=== PATIENT | female | born 1975 | race Caucasian/White ===

== ENCOUNTER 2017-09-13 21:58 | Emergency (ER) | payer OTHER, MEDICAID, SELFPAY ==
[2017-09-13 22:06] VITALS: BP 105/56; PULSE 103; RESP 22; TEMP 36.7; O2SAT 99
--- NOTE | 2017-09-13 22:15 | PC.NURSE ---
pt with hx of liver failure and acities present to the ed with audible course cough from across the room. pt states having difficulty breathing but the duoneb in the ambulace helped.
--- NOTE | 2017-09-13 22:17 | PC.NURSE ---
pt able to talk in full sentences.
--- NOTE | 2017-09-13 22:23 | DI.RAD.S_ITS ---
PROCEDURE: XR CHEST 1V INDICATIONS: Dyspnea TECHNIQUE: One view of the chest was acquired. COMPARISON: None. FINDINGS: Surgical changes and devices: None. Lungs and pleura: Left basilar atelectasis. No pleural effusions or pneumothorax. Mediastinum: Mediastinal contours appear normal. Heart size is normal. Bones and chest wall: No suspicious bony lesions. Overlying soft tissues appear unremarkable. IMPRESSION: Left basilar atelectasis. Dictated by: Tyler Blevins M.D. on 09/14/2017 at 9:16 Approved by: Tyler Blevins M.D. on 09/14/2017 at 9:17
--- NOTE | 2017-09-13 22:28 | ED_ITS ---
HPI - URI/Sore Throat General Chief Complaint: Upper Respiratory Symptoms Stated Complaint: SOA Time Seen by Provider: 09/13/17 22:02 Source: patient Mode of arrival: EMS Limitations: no limitations History of Present Illness HPI Narrative: The patient arrived but would be EMS with onset of dyspnea that started over the last 3-4 hours. She has a hacking cough, but denies fever. The cough has been generally nonproductive. She states she is a former smoker. She was discharged from [facility] 2 days ago, she has ascites and peripheral edema. I obtained her records, she was treated for pneumonia there, as well as cirrhosis and ascites. She is a former heavy alcohol user. She apparently has an appointment with [facility] tomorrow to be evaluated for a liver transplant program. She was seen in clinic earlier today , the ascites and edema were reviewed. She was not having dyspnea at that time. She has felt warm, but has no recorded fever. She says the peripheral edema has been there only 2 days and is related to sitting at bedside for 5 hr prior to discharge. Related Data Previous Rx's Medication Instructions Recorded potassium chloride 20 meq PO DAILY #30 tab 09/14/17 Allergies Allergy/AdvReac Type Severity Reaction Status Date / Time amoxicillin Allergy Rash Verified 09/13/17 22:38 ampicillin Allergy Rash Verified 09/13/17 22:38 Review of Systems Constitutional Reports as per HPI, Denies anorexia, Denies body ache(s), Denies chills, Reports fatigue, Denies fever(s), Denies headache(s), Denies night sweats and Reports poor appetite Eyes Denies change in vision ENT Ears, Nose, Mouth, and Throat: Denies headache(s), Denies sinus pressure and Denies sore throat Cardiovascular Denies chest pain, Denies irregular heart rhythm, Reports leg edema and Reports dyspnea Respiratory Reports chest congestion, Reports cough and Reports dyspnea Gastrointestinal Gastrointestinal: Reports abdominal pain, Denies melena, Reports bloating, Denies constipation, Denies cramping and Denies vomiting Genitourinary Denies dysuria Musculoskeletal Denies back pain, Denies myalgias, Denies atrophy, Denies deformity, Reports limited range of motion and Denies numbness Integumentary/Breasts Denies pruritus, Denies erythema, Denies rash, Denies wounds and Reports jaundice Neurologic Denies headache(s) and Denies numbness Endocrine Reports fatigue [facility] Medical History Alcoholic cirrhosis of liver with ascites (Acute) Pneumonia (Acute) Exam Initial Vital Signs Initial Vital Signs: Vital Signs Temperature 98.0 F 09/13/17 22:06 Pulse Rate 103 H 09/13/17 22:06 Respiratory Rate 22 09/13/17 22:06 Blood Pressure 105/56 L 09/13/17 22:06 Pulse Oximetry 99 09/13/17 22:06 Const General: cooperative, frail appearing and ill appearing Orientation: alert and oriented x3 HENMT Head: normal to inspection, normocephalic and atraumatic Mouth: oral mucosae normal Eyes Sclera: scleral abnormality (Icterus) bilaterally Pupils: PERRL EOM: EOM intact bilaterally Direct ophthalmoscopy: anterior chamber abnormal Neck Neck: No JVD Thyroid: thyroid normal Resp Effort & Inspection: normal respiratory effort, able to speak in complete sentences, no respiratory distress and no use of accessory muscles Auscultation: clear to auscultation bilaterally, no rales, no rhonchi and wheezes expiratory wheezes (Diffusely throughout both lungs.) Cardio Rate: regular rate Rhythm: regular rhythm Heart Sounds: no click, no gallops, no murmurs and no rubs Pulses: normal peripheral pulses GI Palpation: hepatomegaly and No tender Percussion: dullness to percussion and fluid wave Auscultation: normal bowel sounds Back/Spine/Pelvis Back: No crepitance and No CVA tenderness Skin General: no rashes or lesions noted, No erythema, jaundice and No petechiae Neuro General: alert, oriented x3, gait normal and no focal motor deficits Speech: speech normal Extrem General: full ROM, no clubbing, cyanosis or edema and edema Course Orders Ordered: ED Orders 09/13/17 22:23 XR chest 1V Stat EKG-12 Lead Stat 09/13/17 22:37 Ammonia (NH3) Stat B Type Natriuretic Peptide Stat Complete Blood Count AUTO DIFF Stat Comprehensive Metabolic Panel Stat Lipase Stat Partial Thromboplastin Time Stat Prothrombin Time INR Stat Troponin & CK Cardiac Panel Stat Discontinued Medications Albuterol (Ventolin Hfa Prepack) 1 box MISC SEEINSTR ONE Stop: 09/14/17 04:07 Last Admin: 09/14/17 05:09 Dose: 1 box Albuterol/Ipratropium (Duoneb) 3 ml INH NOW ONE Stop: 09/13/17 22:24 Last Admin: 09/13/17 22:57 Dose: 3 ml Furosemide (Lasix) 40 mg IV NOW ONE Stop: 09/13/17 22:24 Last Admin: 09/13/17 22:39 Dose: 40 mg Potassium Chloride (Potassium Chloride) 40 meq PO NOW ONE Stop: 09/14/17 03:49 Last Admin: 09/14/17 04:13 Dose: 40 meq Vital Signs - 8 hr 09/13/17 22:06 09/13/17 22:58 09/13/17 23:01 Temperature 98.0 F Pulse Rate 103 H Respiratory Rate 22 Blood Pressure 105/56 L Blood Pressure [Left Arm] 95/57 L Pulse Oximetry 99 99 09/13/17 23:21 09/14/17 00:00 09/14/17 01:30 Temperature Pulse Rate 103 H 110 H Respiratory Rate Blood Pressure Blood Pressure [Left Arm] 92/51 L 94/50 L Pulse Oximetry 100 95 97 09/14/17 02:30 09/14/17 03:33 09/14/17 04:45 Temperature Pulse Rate 104 H Respiratory Rate Blood Pressure Blood Pressure [Left Arm] 90/49 L 78/52 L 108/65 Pulse Oximetry 99 99 09/14/17 04:52 Temperature Pulse Rate 114 H Respiratory Rate 20 Blood Pressure Blood Pressure [Left Arm] Pulse Oximetry 97 MDM - URI/Sore Throat Medical Records Attestation: I reviewed the patient's medical records. Lab Data Attestation: I reviewed the patient's lab results. Result diagrams: 09/13/17 22:37 09/13/17 22:37 Lab Results 09/13/17 09/13/17 09/13/17 Range/Units 22:37 22:37 22:37 WBC 14.7 H (4.5-11.0) X10^3/uL RBC 2.47 L (4.0-5.2) X10^6/uL Hgb 9.4 L (12.0-16.0) g/dL Hct 27.8 L (36-46) % MCV 112.6 H (80-100) fL MCH 38.0 H (26-34) PG MCHC 33.8 (30-36) % RDW 16.2 H (11.6-14.8) % Plt Count 170 (150-400) X10^3/uL Neut % (Auto) 86.5 H (50-75) % Lymph % (Auto) 7.8 L (25-40) % Hanson % (Auto) 4.8 (3-14) % Eos % (Auto) 0.4 L (2-4) % Baso % (Auto) 0.5 (0-2) % Neut # (Auto) 69046 H (3584-9987) /uL RBC Morphology Not Reportable Polychromasia 1+ H Macrocytosis 1+ H PT 16.9 H (10.1-12.7) SECONDS INR 1.6 H (0.9-1.3) APTT 33 (26.4-36.2) SECONDS Sodium 132 L (137-145) mmol/L Potassium 3.0 L (3.4-5.1) mmol/L Chloride 96 L (98-107) mmol/L Carbon Dioxide 29 (22-32) mmol/L BUN 15 (7-17) mg/dL Creatinine 0.50 L (0.52-1.04) mg/dL Estimated GFR > 60.0 (>60) mL/min BUN/Creatinine Ratio 30.0 H (6-22) Glucose 103 H (70-100) mg/dL Calcium 7.8 L (8.4-10.2) mg/dL Total Bilirubin 4.2 H (0.2-1.3) mg/dL AST 183 H (14-36) IU/L ALT 119 H (9-52) IU/L Alkaline Phosphatase 336 H (38-126) U/L Ammonia (9-30) umol/L Total Creatine Kinase < 20 L (30-135) U/L Troponin I < 0.012 (0.01-0.034) ng/mL B-Natriuretic Peptide < 100.0 (<100) Total Protein 5.4 L (6.3-8.2) g/dL Albumin 2.6 L (3.5-5.0) g/dL Globulin 2.8 (1.7-4.1) g/dL Albumin/Globulin Ratio 0.9 L (1.0-2.8) Lipase 420 H (23-300) U/L 09/13/17 Range/Units 22:37 WBC (4.5-11.0) X10^3/uL RBC (4.0-5.2) X10^6/uL Hgb (12.0-16.0) g/dL Hct (36-46) % MCV (80-100) fL MCH (26-34) PG MCHC (30-36) % RDW (11.6-14.8) % Plt Count (150-400) X10^3/uL Neut % (Auto) (50-75) % Lymph % (Auto) (25-40) % Hanson % (Auto) (3-14) % Eos % (Auto) (2-4) % Baso % (Auto) (0-2) % Neut # (Auto) (6746-7749) /uL RBC Morphology Polychromasia Macrocytosis PT (10.1-12.7) SECONDS INR (0.9-1.3) APTT (26.4-36.2) SECONDS Sodium (137-145) mmol/L Potassium (3.4-5.1) mmol/L Chloride (98-107) mmol/L Carbon Dioxide (22-32) mmol/L BUN (7-17) mg/dL Creatinine (0.52-1.04) mg/dL Estimated GFR (>60) mL/min BUN/Creatinine Ratio (6-22) Glucose (70-100) mg/dL Calcium (8.4-10.2) mg/dL Total Bilirubin (0.2-1.3) mg/dL AST (14-36) IU/L ALT (9-52) IU/L Alkaline Phosphatase (38-126) U/L Ammonia < 9.0 L (9-30) umol/L Total Creatine Kinase (30-135) U/L Troponin I (0.01-0.034) ng/mL B-Natriuretic Peptide (<100) Total Protein (6.3-8.2) g/dL Albumin (3.5-5.0) g/dL Globulin (1.7-4.1) g/dL Albumin/Globulin Ratio (1.0-2.8) Lipase (23-300) U/L Imaging Data Chest x-ray: Attestation: I personally reviewed and interpreted this imaging study as follows: ECG Data Attestation: I personally reviewed and interpreted this ECG as follows: (Normal sinus rhythm. No acute ST T wave changes. Intervals are normal. No acute findings.) MDM Narrative Medical decision making narrative: The patient was recently admitted to [facility] with pneumonia, as well as cirrhosis and ascites. She was on well at home earlier today, she came in due to respiratory difficulty. She has wheezes. The exam does not suggest pneumonia, nor does the chest x-ray. She is on Lasix and spironolactone. She has improved with IV Lasix. The albuterol neb has also helped. She probably has a degree of COPD. She was given potassium supplement due to the hypokalemia, and started on albuterol. She is ambulatory without difficulty. Discharge Plan Departure Patient Disposition: Home, Self-Care Clinical Impression: COPD (chronic obstructive pulmonary disease), Cirrhosis of liver with ascites, Acute hypokalemia Instructions: Chronic Obstructive Pulmonary Disease, Hypokalemia Activity Restrictions/Additional Instructions: Continue her current medications. Albeterol 2 puffs every 4 hr with spacer as needed to help with breathing. Take the potassium supplement daily. Prescriptions: New potassium chloride 20 mEq tablet extended release 20 meq PO DAILY Qty: 30 RF: 0
[2017-09-13] MEDS: FUROSEMIDE 40 MG/4 ML VIAL IV (22:39)
[2017-09-13 22:53] LABS: Add Manual Diff / Slide Review NO; Basophils Percent Auto 0.5 % (0-2); Eosinophils Percent Auto 0.4 % (2-4); Hematocrit 27.8 % (36-46); Hemoglobin 9.4 g/dL (12.0-16.0); Lymphocytes Percent Auto 7.8 % (25-40); Mean Corpuscular HGB Conc 33.8 % (30-36); Mean Corpuscular Volume 112.6 fL (80-100); Monocytes Percent Auto 4.8 % (3-14); Neutrophils Absolute Auto 12700 /uL (3000-5900); Neutrophils Percent Auto 86.5 % (50-75); Platelet Count 170 X10^3/uL (150-400); Red Blood Cell Count 2.47 X10^6/uL (4.0-5.2); Red Cell Distribution Width 16.2 % (11.6-14.8); White Blood Cell Count 14.7 X10^3/uL (4.5-11.0)
[2017-09-13 22:54] LABS: INR 1.6 (0.9-1.3); Prothrombin Time 16.9 SECONDS (10.1-12.7)
[2017-09-13 22:57] LABS: PTT Partial Thromboplastin Tim 33 SECONDS (26.4-36.2)
[2017-09-13] MEDS: ALBUTEROL/IPRATROPIUM 3 ML AMPUL INH (22:57)
[2017-09-13 22:58] VITALS: O2SAT 99
[2017-09-13 22:58] LABS: Alanine Aminotransferase 119 IU/L (9-52); Albumin 2.6 g/dL (3.5-5.0); Albumin Globulin Ratio 0.9 (1.0-2.8); Alkaline Phosphatase 336 U/L (38-126); Aspartate Aminotransferase 183 IU/L (14-36); Bilirubin Total 4.2 mg/dL (0.2-1.3); Blood Urea Nitrogen 15 mg/dL (7-17); Calcium 7.8 mg/dL (8.4-10.2); Carbon Dioxide 29 mmol/L (22-32); Chloride 96 mmol/L (98-107); Creatine Kinase < 20 U/L (30-135); Estimated Glomerular Filt Rate > 60.0 mL/min (>60); Globulin 2.8 g/dL (1.7-4.1); Glucose 103 mg/dL (70-100); HEMOLYSIS < 15 (0-50); Lipase 420 U/L (23-300); Sodium 132 mmol/L (137-145); Total Protein 5.4 g/dL (6.3-8.2)
[2017-09-13 22:59] LABS: Ammonia (NH3) < 9.0 umol/L (9-30)
[2017-09-13 23:01] VITALS: BP 95/57
[2017-09-13 23:11] LABS: B Type Natriuretic Peptide < 100.0 (<100); Troponin I < 0.012 ng/mL (0.01-0.034)
[2017-09-13 23:12] LABS: Macrocytosis 1+; Polychromasia 1+
--- NOTE | 2017-09-13 23:19 | PC.NURSE ---
pt reports left leg feeling numb and tingly related to seating position in bed. [employer] P[employer]ER repositioned pt.
[2017-09-13 23:21] VITALS: O2SAT 100
[2017-09-14] VITALS (10 sets, daily range): BP systolic 78–108; BP diastolic 49–65; PULSE 65–114; RESP 18–20; O2SAT 95–99
[2017-09-14] MEDS: POTASSIUM CHLORIDE 20 MEQ/15 ML UDC 40 MEQ PO (04:13)
--- NOTE | 2017-09-14 04:53 | PC.NURSE ---
pt assisted around unit one time with assistance of walker by HUC. Kamini zaidi. hospital socks worn. Pt tolerated well talking in full sentences the entire walk. pt did not cough until back it bed.
[2017-09-14] MEDS: ALBUTEROL HFA PREPACK 1 BOX MISC (05:09)
== END 2017-09-14 07:43 | disposition home or self-care (01) ==
PROVIDERS: Emergency Provider Emergency Medicine
DX: J44.9 Chronic obstructive pulmonary disease, unspecified (principal); K74.60 Unspecified cirrhosis of liver; R18.8 Other ascites; E87.6 Hypokalemia
CPT/HCPCS: 36415; 71045; 80053; 82140; 82550; 82553; 83690; 83880; 84484; 85025; 85610; 85730; 93005; 94640; 96374; 99284; 99285; J1940

== ENCOUNTER → 2017-09-14 07:52 | Outpatient (CLI) | payer OTHER, MEDICAID, SELFPAY ==
[2017-09-14 08:28] LABS: Alanine Aminotransferase 110 IU/L (9-52); Albumin 2.4 g/dL (3.5-5.0); Albumin Globulin Ratio 0.9 (1.0-2.8); Alkaline Phosphatase 297 U/L (38-126); Aspartate Aminotransferase 183 IU/L (14-36); Bilirubin Total 4.2 mg/dL (0.2-1.3); Blood Urea Nitrogen 15 mg/dL (7-17); Calcium 7.8 mg/dL (8.4-10.2); Carbon Dioxide 29 mmol/L (22-32); Chloride 98 mmol/L (98-107); Estimated Glomerular Filt Rate > 60.0 mL/min (>60); Globulin 2.8 g/dL (1.7-4.1); Glucose 89 mg/dL (70-100); HEMOLYSIS < 15 (0-50); Sodium 131 mmol/L (137-145); Total Protein 5.2 g/dL (6.3-8.2)
[2017-09-14 08:54] LABS: Basophils Percent Auto 0.3 % (0-2); Eosinophils Percent Auto 0.4 % (2-4); Hematocrit 27.6 % (36-46); Hemoglobin 9.3 g/dL (12.0-16.0); Lymphocytes Percent Auto 9.9 % (25-40); Mean Corpuscular HGB Conc 33.6 % (30-36); Mean Corpuscular Volume 113.1 fL (80-100); Monocytes Percent Auto 4.4 % (3-14); Neutrophils Absolute Auto 11700 /uL (3000-5900); Platelet Count 159 X10^3/uL (150-400); Red Blood Cell Count 2.44 X10^6/uL (4.0-5.2); White Blood Cell Count 13.8 X10^3/uL (4.5-11.0)
[2017-09-14 08:57] LABS: Add Manual Diff / Slide Review SLIDE REVIEW
[2017-09-14 09:51] LABS: Anisocytosis 1+; Macrocytosis 2+
== END ==
PROVIDERS: Visit Provider Nurse Practitioner Gerontology
DX: K70.10 Alcoholic hepatitis without ascites (principal); E03.9 Hypothyroidism, unspecified
CPT/HCPCS: 36415; 80053; 82140; 84443; 85025

== ENCOUNTER → 2018-08-31 14:42 | Outpatient (CLI) | payer OTHER, MEDICAID, SELFPAY ==
--- NOTE | 2018-08-31 | DI.ECHO.S_ITS ---
[facility]---------+ [facility] +---------+ : : [address] [place] : : : : [id number] : : : : Phone: [phone] Echocardiogram Report + + :Name: KHARI AGUILAR Study Date: 08/31/2018 Height: 59 in : :[facility] Exam Location: [facility] Weight: 128 lb: : Gender: Female BSA: 1.5 m2 : :: 1975 Age: 43 yrs BP: 90/58 mmHg: :Reason For Study: PORTAL HTN : : Performed By: Mukesh Scott : :Referring: BRANDYN NOGUERA : + + Interpretation Summary 1) Normal left ventricular thickness, size, wall motion, and systolic function (EF 55-60%). 2) Normal right ventricular size and function. 3) No significant valvular abnormalities. 4) Incidental finding of abdominal ascites is noted. 5) No prior Echo available for comparison. Procedure: A two-dimensional transthoracic echocardiogram with color flow and Doppler was performed. The study quality was technically good. There is no prior echocardiogram noted for this patient. The patient was in normal sinus rhythm during the exam. Left Ventricle: The left ventricle is normal in size. There is normal left ventricular wall thickness. The ejection fraction is estimated to be 55-60%. Left ventricular systolic function is normal without focal wall motion abnormalities. Right Ventricle: The right ventricle is normal in size and function. Atria: Both atria are normal in size. The interatrial septum is intact with no evidence for an atrial septal defect. Mitral Valve: The mitral valve is normal in structure and function. There is no mitral regurgitation noted. Aortic Valve: The aortic valve is normal in structure and function. The aortic valve is trileaflet. The aortic valve opens well. There is no aortic valve stenosis. No aortic regurgitation is present. Tricuspid Valve: The tricuspid valve is normal in structure and function. There is trace tricuspid regurgitation. The right ventricular systolic pressure is estimated to be at least 25 mmHg based on an estimated right atrial pressure of 3 mm Hg. Pulmonic Valve: The pulmonic valve is not well seen, but is grossly normal. There is no pulmonic valvular regurgitation. Great Vessels: The aortic root is normal size. The dimensions of the ascending aorta are normal. The pulmonary artery is normal size. The IVC is of normal diameter and collapses greater than 50% with a sniff. This suggests a low right atrial pressure of 3 mm Hg. Pericardium/ Pleura There is no pericardial effusion. There is no pleural effusion. Incidental finding of abdominal ascites is noted. MMode/2D Measurements & Calculations LVIDd: 3.8 cm LVOT diam: 2.0 cm LVIDs: 2.6 cm Ao root diam: 2.9 cm FS: 29.7 % Aortic Jxn: 2.3 cm EPSS: 0.32 cm asc Aorta Diam: 2.8 cm IVSd: 1.0 cm Ao Arch Diam (Prox Trans): 2.2 cm LVPWd: 0.98 cm LV roper. diameter/BSA (cm/m^2): 2.5 LV sys. diameter/BSA (cm/m^2): 1.7 LA dimension: 3.1 cm RA long axis: 3.4 cm LA A2 area: 18.0 cm2 RA area: 12.0 cm2 LA A4 area: 14.5 cm2 RA vol: 36.0 ml LA length (vol): 4.8 cm RA : 23.6 ml/m2 LA vol: 46.2 ml IVC diam: 1.4 cm LA vol index: 30.3 ml/m2 Doppler Measurements & Calculations Ao V2 max: 121.7 cm/sec LVOT Max Rj: 86.8 cm/sec Ao V2 mean: 86.9 cm/sec LV V1 max P.0 mmHg Ao max P.9 mmHg LV V1 VTI: 14.9 cm Ao mean P.4 mmHg JUANA(I,D): 2.3 cm2 Ao V2 VTI: 20.2 cm JUANA(V,D): 2.2 cm2 sev ratio: 0.74 JUANA indexed to BSA (cm^2/m^2): 1.5 MV E max rj: 62.2 cm/sec TR max rj: 231.8 cm/sec MV A max rj: 56.9 cm/sec TR max P.5 mmHg MV E/A: 1.1 PA V2 max: 84.5 cm/sec Med Peak E' Rj: 5.9 cm/sec PA V2 mean: 60.8 cm/sec E/E' med: 10.6 PA mean P.6 mmHg Lat Peak E' Rj: 7.7 cm/sec PA pr(Accel): 9.1 mmHg E/E' lat: 8.0 PA Accel Time: 0.14 sec E/e' average: 9.3 MV dec time: 0.19 sec SV(LVOT): 46.3 ml Reading Physician:05:12 PM
== END ==
PROVIDERS: Family Provider Internal Medicine; PCP Nurse Practitioner Gerontology; Visit Provider Internal Medicine Cardiovascular Disease
DX: K76.6 Portal hypertension (principal); R18.8 Other ascites
CPT/HCPCS: 93306

== ENCOUNTER 2019-01-25 12:27 | Day surgery (SDC) | payer OTHER, MEDICAID, SELFPAY ==
[2019-01-25] VITALS (8 sets, daily range): BP systolic 102–115; BP diastolic 60–77; PULSE 85–96; RESP 9–20; TEMP 36.2–36.7; O2SAT 91–99; BMI 25.6
[2019-01-25] MEDS: SODIUM CHLORIDE 0.9% 1,000 ML 70 ML IV (13:43)
--- NOTE | 2019-01-25 14:36 | PM.HP.1 ---
History of Present Illness History of Present Illness Date Patient Seen: 01/25/19 Time Patient Seen: 14:36 Chief complaint: [id number] Narrative: Cirrhosis with ascites. Patient denies any changes to her symptoms and office visit November 22, 2017. She does believe she may have slightly decreased amount of ascites. She does continue to get abdominal paracentesis. Patient History Medical History Alcoholic cirrhosis of liver with ascites (Acute) Pneumonia (Acute) Surgical History (Updated 01/25/19 @ 13:35 by Aundrea Vee RN) Previous section (Acute) Family & Social History Social History: household members family,children Meds Home Medications and Allergies Home Medications Medication Instructions Recorded Confirmed Type potassium chloride 20 meq PO DAILY #30 tab 09/14/17 01/25/19 Rx benzonatate [Tessalon Perles] 1 mg PO DAILY 01/25/19 01/25/19 History diphenhydramine HCl [Benadryl] 50 mg PO DAILY 01/25/19 01/25/19 History ferrous sulfate [iron] 325 mg PO DAILY 01/25/19 01/25/19 History furosemide [Lasix] 60 mg PO QAM 01/25/19 01/25/19 History levothyroxine [Synthroid] 112 mcg PO DAILY 01/25/19 01/25/19 History pantoprazole [Protonix] 40 mg PO DAILY 01/25/19 01/25/19 History spironolactone [Aldactone] 75 mg PO DAILY 01/25/19 01/25/19 History Allergies Allergy/AdvReac Type Severity Reaction Status Date / Time amoxicillin Allergy Rash Verified 09/13/17 22:38 ampicillin Allergy Rash Verified 09/13/17 22:38 Review of Systems Review of Systems ROS Unobtainable: All systems reviewed & are unremarkable except as noted in HPI and below Exam Vital Signs (past 8 hours): - 01/25/19 13:27 Temperature 97.1 F L Pulse Rate 94 H Respiratory Rate 20 Blood Pressure 112/77 Pulse Oximetry 99 Oxygen Delivery Method Room Air Const General: cooperative, comfortable, well developed, well groomed and No acute distress Nutritional Appearance: average body habitus Orientation: oriented x3 Resp Effort & Inspection: normal respiratory effort and able to speak in complete sentences Auscultation: clear to auscultation bilaterally Cardio Rate: regular rate Rhythm: regular rhythm Heart Sounds: S1 normal and S2 normal GI Palpation: soft and ascites Auscultation: normal bowel sounds Other: Periumbilical hernia Extrem Right lower extremity: no edema Left lower extremity: no edema Assessment & Plan Assessment & Plan narrative: 1. Cirrhosis with ascites -rule out esophageal varices 2. History gastric bypass surgery EGD today, further recommendations to follow
[2019-01-25] MEDS: LIDOCAINE 4% SOLN 50 ML 20 ML TOP (14:38)
[2019-01-25] MEDS: fentaNYL 250 MCG/5 ML INJ IV (14:38)
[2019-01-25] MEDS: MIDAZOLAM 5 MG/5 ML VIAL IV (14:39)
--- NOTE | 2019-01-25 15:01 | PM.OP.ENDO ---
Operative Date/Time/Diagnoses Date of procedure: 01/25/19 Time of procedure: 14:44 Procedure Notes Procedure in detail: Surgeon: Aparna Sam DO Procedure: Esophagogastroduodenoscopy Preoperative diagnosis: 1. Cirrhosis with ascites, rule out varices 2. History gastric bypass surgery Postoperative diagnosis: 1. Small esophageal varices, flattened with insufflation 2. Evidence of Marv-en-Y gastric bypass surgery, healthy appearing mucosa Medications: Conscious sedation using 2 mg IV of Midazolam and 100 mcg IV of Fentanyl Preanesthesia Assessment An H and P was performed/updated and the Px?s ASA class is 2. The procedure was discussed in detail with the patient. The potential risks and complications including infection, bleeding, missed lesions, perforation, need for surgery in case of perforation, prolonged hospital stay, and were explained. A brief question and answer period was allotted and once all questions were answered, informed consent was obtained. The patient was brought back to the procedure room and placed on standard monitoring. The patient?s vital signs were monitored continuously throughout the entire procedure. Prior to starting, a timeout was performed to confirm the patient?s identity, allergies, medications, and procedure. Procedure in detail The patient was placed in left lateral decubitus position and a bite block was inserted. The tip of the upper endoscope was placed into the mouth and advanced without difficulty under direct visualization into the esophagus. Esophagus: Small esophageal varices, flattened insufflation Stomach: Evidence of Marv-en-Y gastric bypass surgery healthy and intact Duodenum/jejunum: Healthy-appearing a parent and efferent limbs The patient tolerated the procedure well and will be brought back to the recovery area to be discharged once criteria are met. The total physician intraservice time was 8min. Complications There were no complications and estimated blood loss was minimal. Recommendations: Resume previous diet Continue outPx medications Repeat EGD in 1 year for surveillance Office follow up as previously scheduled An emergency contact number was given to the patient for any complications related to the procedure
== END 2019-01-25 15:51 | disposition home or self-care (01) ==
PROVIDERS: Family Provider Internal Medicine; PCP Nurse Practitioner Gerontology; Visit Provider Student in an Organized Health Care Education/Training Program
PROC: 0DJ08ZZ Inspection of Upper Intestinal Tract, Via Natural or Artificial Opening Endoscopic (ICD-10-PCS; CPT 43235; principal; 2019-01-25 14:30)
DX: K70.31 Alcoholic cirrhosis of liver with ascites (principal); Z98.890 Other specified postprocedural states; I85.00 Esophageal varices without bleeding
CPT/HCPCS: 43235; J2250; J3010

== ENCOUNTER → 2020-01-15 14:56 | Outpatient (CLI) | payer MEDICARE, MEDICAID, SELFPAY ==
[2020-01-15 17:35] LABS: COVID19 -Nasal RAPID Negative (Negative)
== END ==
PROVIDERS: Family Provider Internal Medicine; PCP Nurse Practitioner Gerontology; Visit Provider Physician Assistant
DX: Z11.59 Encounter for screening for other viral diseases (principal)
CPT/HCPCS: 87635

== ENCOUNTER 2020-01-17 09:51 | Day surgery (SDC) | payer MEDICARE, MEDICAID, SELFPAY ==
[2020-01-17] VITALS (7 sets, daily range): BP systolic 98–119; BP diastolic 69–79; PULSE 75–105; RESP 11–20; TEMP 36.1–36.6; O2SAT 94–98; BMI 25.8
[2020-01-17] MEDS: SODIUM CHLORIDE 0.9% 1,000 ML 200 ML IV (10:08)
--- NOTE | 2020-01-17 10:25 | PM.HP.1 ---
History of Present Illness History of Present Illness Date Patient Seen: 01/17/20 Chief complaint: SDC Narrative: Abdominal pain and history of cirrhosis rule out esophageal varices Patient History Medical History Alcoholic cirrhosis of liver with ascites Pneumonia Surgical History (Updated 01/25/19 @ 13:35 by Aundrea Vee RN) Previous section Family & Social History Social History: household members family,children Tobacco & Substance use: Smoking Status Former smoker alcohol intake former Substance Use Type does not use Meds Home Medications and Allergies Home Medications Medication Instructions Recorded Confirmed Type potassium chloride 20 meq PO DAILY #30 tab 09/14/17 01/25/19 Rx benzonatate [Tessalon Perles] 1 mg PO DAILY 01/25/19 01/25/19 History diphenhydramine HCl [Benadryl] 50 mg PO DAILY 01/25/19 01/25/19 History ferrous sulfate [iron] 325 mg PO DAILY 01/25/19 01/25/19 History furosemide [Lasix] 60 mg PO QAM 01/25/19 01/25/19 History levothyroxine [Synthroid] 112 mcg PO DAILY 01/25/19 01/25/19 History pantoprazole [Protonix] 40 mg PO DAILY 01/25/19 01/25/19 History spironolactone [Aldactone] 75 mg PO DAILY 01/25/19 01/25/19 History Allergies Allergy/AdvReac Type Severity Reaction Status Date / Time amoxicillin Allergy Rash Verified 09/13/17 22:38 ampicillin Allergy Rash Verified 09/13/17 22:38 Exam Vital Signs (past 8 hours): - 01/17/20 10:09 Temperature 97.5 F L Pulse Rate 105 H Respiratory Rate 20 Blood Pressure 114/79 Pulse Oximetry 98 Oxygen Delivery Method Room Air Narrative Exam Narrative: Oropharynx free of lesions Chest clear to auscultation percussion Cardiac exam reveals no S3 or murmur Assessment & Plan Assessment & Plan narrative: Abdominal pain with history of cirrhosis rule out peptic disease and rule out interval appearance of esophageal varices. Risks, benefits, alternatives have been explained.
--- NOTE | 2020-01-17 10:26 | PM.OP.ENDO ---
Operative Date/Time/Diagnoses Date of procedure: 01/17/20 Pre-op diagnosis: See indication and findings Procedure & Clinicians Study performed: EGD Same procedure as scheduled: Yes Indications: Abdominal pain and history of cirrhosis rule esophageal varices or peptic disease. Surgeon: Liane Agee Procedure Notes Procedure in detail: After informed consent was obtained the patient was placed in the left lateral decubitus position. The video upper scope placed into the oropharynx and with the patient's help into the esophagus. The esophagus, stomach, duodenum were carefully examined. On withdrawal, retroflexed view of the GE junction was performed. The scope was removed. The patient tolerated procedure well. Blood loss none Complications none Sedation Total sedation time 7 minutes Versed 3 mg fentanyl 100 vanc g IV titration Findings 1. Grade 1 esophageal varices flatten by insufflation in 3 columns. Squamocolumnar junction at just past 30 cm 2. Status post gastric bypass with moderate size gastric remnant. No evidence of ulceration. 3. Marv-en-Y gastroenterostomy. Marv limb was evaluated to 60 cm past the gastro enteric anastomosis and was normal. She will need follow-up upper endoscopy in 1 year to evaluate her varices.
[2020-01-17] MEDS: fentaNYL 250 MCG/5 ML INJ IV (10:55)
[2020-01-17] MEDS: MIDAZOLAM 5 MG/5 ML VIAL IV (10:58)
--- NOTE | 2020-01-17 13:58 | SUR.PHASEII ---
Pt stated she was having her brother drive her home but he had no cell phone. Pt stated her cell phone had . She used another phone to call over to [facility] bc she stated that she had to talk to her brother. After talking to her brother on the phone she stated it would be 10-15 min before her brother would be here. Harry RN took pt to ER entrance around 1215, by 1250 ride still had not arrived, per Harry, she and pt searched ER and main entrance parking lot for brother's car, pt was telling harry she did not have to go with her. harry explained it was hospital policy to not have her drive home or be alone until ride arrived. I spoke with Dr Agee and he stated that pt must return to the outpt dept (she refused to return with harry) or if she was choosing to drive home, per we would call police to report her for driving with meds on board. pt states she will return to the outpt dept. She is waiting there and is charging her phone, no one is answering at [facility], I called as well and no one answered. Around 1330 she states that she got ahold of the insecticide mixer at [facility] who stated her brother left at noon from the shop. Went out and looked for his car and both ER and main entrances to no avail. SPoke with Ashleigh Herr in case managment and she came down to speak with pt as well. She stated we would provide pt with taxi voucher to [facility] and pt and ashleigh signed form stating that pt was informed she was not allowed to drive a car. This form along with a copy of the taxi voucher were placed in the chart. pt was wheeled to ER in w/c and waited with her until lynn's taxi arrived. Notified Dr Agee's office to place note in chart about how pt needed to have confirmed ride home prior to performing a procedure, pt notified of this as well and acknolwedged understanding of needing to have ride home in the future.
== END 2020-01-17 12:13 | disposition home or self-care (01) ==
PROVIDERS: Family Provider Internal Medicine; PCP Physician Assistant; Referring Provider Physician Assistant; Visit Provider Internal Medicine Gastroenterology
PROC: 0DJ08ZZ Inspection of Upper Intestinal Tract, Via Natural or Artificial Opening Endoscopic (ICD-10-PCS; CPT 43235; principal; 2020-01-17 11:00)
DX: I85.00 Esophageal varices without bleeding (principal); Z87.898 Personal history of other specified conditions; Z93.1 Gastrostomy status
CPT/HCPCS: 43235; J2250; J3010

== ENCOUNTER → 2021-06-02 09:11 | Outpatient (CLI) | payer MEDICARE, MEDICAID, SELFPAY ==
[2021-06-02 10:32] LABS: COVID19 -Nasal RAPID Negative (Negative)
== END ==
PROVIDERS: Family Provider Internal Medicine; PCP Physician Assistant; Visit Provider Family Medicine Sleep Medicine
DX: Z20.822 Contact with and (suspected) exposure to COVID-19 (principal)
CPT/HCPCS: 87635; C9803

== ENCOUNTER 2021-06-04 08:28 | Day surgery (SDC) | payer MEDICARE, MEDICAID, SELFPAY ==
[2021-06-04 08:45] VITALS: BMI 28.3
[2021-06-04 08:54] VITALS: BP 102/74; PULSE 84; RESP 16; TEMP 36.4; O2SAT 98
[2021-06-04] MEDS: SODIUM CHLORIDE 0.9% 1,000 ML 84 ML IV (08:58)
--- NOTE | 2021-06-04 08:59 | PM.OP.EGD ---
Operative Date/Time/Diagnoses Date of procedure: 06/04/21 Pre-op diagnosis: See indication and findings Procedure & Clinicians Study performed: EGD Indications: History of cirrhosis with esophageal varices need for surveillance and banding if necessary. Surgeon: Liane Agee Procedure Notes Procedure in detail: After informed consent was obtained the patient was placed in left lateral decubitus position. The video upper scope placed into the oropharynx and with the patient's help swelled into the esophagus. The esophagus stomach and duodenum were carefully examined. On withdrawal retroflexed view the GE junction was performed. The scope was removed. The patient tolerated procedure well. Blood loss none Complications none Sedation mac Findings 1. Virtually normal esophagus to squamocolumnar junction. There was a hint of 2 very small flat columns of varices distally. 2. GE junction wide open 3. 5 cm gastric remnant 4. Normal and the side anastomosis without evidence of ulceration 5. Normal Marv limb 25 cm past the anastomosis. Family will need follow-up EGD in 1 year for varices surveillance.
[2021-06-04 09:51] VITALS: BP 90/58; PULSE 89; RESP 14; TEMP 36.9; O2SAT 97
[2021-06-04 09:56] VITALS: BP 94/56; PULSE 79; RESP 14; O2SAT 96
[2021-06-04 10:01] VITALS: BP 98/69; PULSE 82; RESP 15; O2SAT 98
--- NOTE | 2021-06-04 10:02 | SUR.PHASEI ---
discharge instructions reviewed with pt and she verbalized understanding.
[2021-06-04 10:06] VITALS: BP 88/59; PULSE 75; RESP 15; O2SAT 98
[2021-06-04 10:08] VITALS: BP 112/72; PULSE 75; RESP 15; O2SAT 99
--- NOTE | 2021-06-04 10:29 | SUR.OPER ---
ALL PREOPERATIVE AND INTRAOPERATIVE PATIENT CARE GOALS WERE MET. KULWINDER KWOK
== END 2021-06-04 10:23 | disposition home or self-care (01) ==
PROVIDERS: Family Provider Internal Medicine; PCP Physician Assistant Medical; Referring Provider Internal Medicine Gastroenterology; Visit Provider Internal Medicine Gastroenterology
PROC: 0DJ08ZZ Inspection of Upper Intestinal Tract, Via Natural or Artificial Opening Endoscopic (ICD-10-PCS; CPT 43235; principal; 2021-06-04 09:30)
DX: Z09 Encounter for follow-up examination after completed treatment for conditions other than malignant neoplasm (principal); Z87.19 Personal history of other diseases of the digestive system
CPT/HCPCS: 43235; J2704

== ENCOUNTER → 2021-08-19 13:08 | Outpatient (CLI) | payer MEDICARE, MEDICAID, SELFPAY ==
[2021-08-19 15:11] LABS: COVID19 -Nasal RAPID Negative (Negative)
== END ==
PROVIDERS: Family Provider Internal Medicine; PCP Physician Assistant Medical; Visit Provider Surgery
DX: Z20.822 Contact with and (suspected) exposure to COVID-19 (principal); Z01.812 Encounter for preprocedural laboratory examination
CPT/HCPCS: 87635; C9803